=== PATIENT | female | born 1990 | race Caucasian/White ===

== ENCOUNTER 2020-11-04 06:21 | Day surgery (SDC) | payer OTHER ==
[2020-11-03 14:52] LABS: Albumin 3.9 g/dL (3.4-5.0); Bilirubin Direct 0.2 mg/dL (0-0.2); Bilirubin Total 0.8 mg/dL (0.2-1.0); Protein, Total 7.1 g/dL (6.4-8.2)
[2020-11-04] MEDS ORDERED: CEFOXITIN/SWI 1gm 1 GM/10 ML SYR ONE (06:58)
[2020-11-04] MEDS ORDERED: Ringers Lactate 1,000 ML IV ONE ×2 (06:58→08:55)
[2020-11-04] MEDS ORDERED: BUPIVACAINE 0.5% PF 10 ML VIAL ONE (07:27)
[2020-11-04] MEDS ORDERED: propofoL 200 MG/20 ML VIAL IV ONE (07:31)
[2020-11-04] MEDS ORDERED: MIDAZOLAM HCL 2 MG/2 ML INJ ONE (07:31)
[2020-11-04] MEDS ORDERED: ROCURONIUM 50 MG/5 ML VIAL IV ONE (07:32)
[2020-11-04] MEDS ORDERED: FENTANYL CITR 100 MCG/2 ML ONE (07:32)
[2020-11-04] MEDS ORDERED: KETOROLAC 30 MG/ML INJ ONE (07:32)
[2020-11-04] MEDS ORDERED: dexAMETHasone 10 MG/ML VIAL ONE (07:32)
[2020-11-04] MEDS ORDERED: LIDOCAINE 2% MPF 5 ML VIAL ONE (07:32)
[2020-11-04] MEDS ORDERED: ONDANSETRON 4 MG/2 ML VIAL ONE (07:33)
[2020-11-04] MEDS ORDERED: GLYCOPYRROLATE 0.2 MG/ML SYR ONE (08:54)
[2020-11-04] MEDS ORDERED: NEOSTIGMINE 1 MG/ML -5 ML ONE (08:54)
[2020-11-04 10:07] VITALS: BP 113/66; TEMP 98; O2SAT 98
[2020-11-04] MEDS ORDERED: HYDROCODONE/APAP 7.5/325 MG TAB ONE (10:08)
--- NOTE | 2020-11-04 10:28 | OP ---
Date of Procedure: 11/04/2020 Surgeon: Edil Whitmore MD Client Services Assistant: None. Preoperative Diagnosis: Acute and chronic cholecystitis and cholelithiasis. Postoperative Diagnosis: Acute and chronic cholecystitis and cholelithiasis. Procedure Performed: Laparoscopic cholecystectomy. Estimated Blood Loss: Minimal. Specimen: Gallbladder. Finding: As above. Anesthesia: General. Complications: None. Disposition: The patient tolerated the procedure in stable condition, taken to Recovery in good gene ral condition. Procedure In Detail: The patient was brought to the OR and placed in supine position. General anest hesia begun. The patient was prepped and draped in usual sterile fashion. Marcaine 0.5% was infiltr ated locally. A 15-blade was used to make a 1 cm supraumbilical midline incision. Subcutaneous tiss ue divided. Fascia identified and divided. #1 Vicryl stay suture was placed. Peritoneal cavity was entered with sharp and blunt dissection. A 12 mm trocar placed into the peritoneal cavity under dir ect vision. Pneumoperitoneum was established. Three 5 mm trocars placed, 1 in the epigastrium just to the right of midline and 2 in the right subcostal region. Laparoscopy revealed a distended gallbl adder, which was aspirated of clear bile consistent with acute cholecystitis. Gallbladder was signif icantly thickened. Fundus retracted superiorly. Infundibulum was identified and retracted inferolat erally. Cystic duct, cystic artery were clearly identified with blunt dissection. Clips placed. Sigifredo th structures divided. Cautery used to remove the gallbladder from the liver bed. Bleeding on the l iver bed controlled with cautery. Gallbladder was retrieved through the umbilicus via an EndoCatch b ag. Right upper quadrant was irrigated. Effluent was clear. No evidence of bleeding or bile leakag e appreciated. Subsequently, all trocars were removed under direct vision. Stay sutures were tied t o each other to approximate the fascial defect. Subcutaneous wounds were irrigated. Bleeding contro lled with cautery. A 3-0 chromic used to approximate subcutaneous tissue. Beverley used to close ski n. Sterile dressing applied. Patient was awakened and taken to Recovery in good general condition. Discharge Note: The patient will go to Day Surgery and home when stable. Disposition: Home. Condition: Stable. Discharge Instructions: Resume home medications and diet. Activity as tolerated. No heavy lifting. Remove outer dressing in 2 days. Shower. Keep wound clean and dry. Follow up in my office in 1 w [place]. Call for appointment. Tylenol No.3 one tablet p.o. q.4 p.r.n. pain. /MODL Voice ID: [id number] Report ID: [id number]
== END 2020-11-04 10:50 | disposition home or self-care (01) ==
LOC: OR 06:21
PROVIDERS: ATTEND Surgery
PROC: 0FT44ZZ Resection of Gallbladder, Percutaneous Endoscopic Approach (ICD-10-PCS; principal; 2020-11-04 07:30)
DX: K80.12 Calculus of gallbladder with acute and chronic cholecystitis without obstruction (principal)
CPT/HCPCS: 36415; 82150; 80076; 88304; 47562; J2704; J2250; J3010; J1100; J2710; J7120 ×2; J2405